=== PATIENT | female | born 1975 | race Caucasian/White ===

== ENCOUNTER 2021-05-13 17:46 | Emergency (ER) | payer OTHER ==
[~2021-05-13] VITALS: Ht 157.5 cm; Wt 77.1 kg
[~2021-05-13 17:46] MED LIST: DIOVAN160 M1 PO; DORYX100 MG PO; FIRST-OMEPR2 MG/1 ML PO; HEARTBURN RELI150 M1 PO; KETO10TA2 PO; REGLAN 10ML5 MG/ML PO; TOPROL XL50 M1
[2021-05-13] MEDS ORDERED: AMLODIPINE 5 MG. (18:15)
[2021-05-13] MEDS ORDERED: BENZONATATE 100 MG (18:15)
[2021-05-13] MEDS ORDERED: ZITHROMAX200 MG PO (21:39)
== END 2021-05-13 22:00 | disposition home or self-care (01) ==
LOC: ER 17:46
DX: J40 Bronchitis, not specified as acute or chronic (principal); Z86.16 Personal history of COVID-19